=== PATIENT | female | born 1995 | race Two or more races ===

== ENCOUNTER 2017-09-01 08:14 | Emergency (ER) | payer OTHER ==
[~2017-09-01] VITALS: Ht 152.4 cm; Wt 61.2 kg
[2017-09-01 08:35] VITALS: BP 113/64
[2017-09-01 08:44] LABS: APPEARANCE,URINE CLEAR; BILIRUBIN, URINE NEGATIVE (NEGATIVE); COLOR,URINE PALE YELLOW; GLUCOSE, URINE (UA) NEGATIVE (NEGATIVE); KETONES,URINE NEGATIVE (NEGATIVE); LEUKOCYTE ESTERASE ,URINE 2+ (NEGATIVE); NITRITE,URINE NEGATIVE (NEGATIVE); PH,URINE 5 (4.5-8.0); PROTEIN,URINE NEGATIVE (NEGATIVE); UROBILINOGEN,URINE NORMAL MG/DL (0.0-1.0)
--- NOTE | 2017-09-01 08:56 | Emergency Room Report ---
History of Present Illness General Chief Complaint: Abdominal Pain Source: Patient Present Illness HPI Patient present with complaints of suprapubic abdominal pain and cramping Reports that she has had several frequent UTIs She states that she feels that she has a UTI almost every 3 months She was set up with a route agent however there was a change in insurance and she will be seeing specialist next week Given the cramping and discomfort patient presents to the ER She has some mild frequency Mild discomfort with urination denies any back or flank pain denies any vomiting or diarrhea Patient is sexually active reports that she has some very minimal vaginal discharge in the beginning however that has cleared and the cramping has continued Allergies: Coded Allergies: No Known Allergies (Unverified , 09/01/17) Patient History Past Medical History: see triage record Pertinent Family History: none Last Menstrual Period: 08/05/17 Now: No : 0 Para: 0 Reviewed Nursing Documentation: PMH: Agreed; PSxH: Agreed Nursing Documentation-PMH Past Medical History: No History, Except For Hx Cardiac Problems: No - frequent uti's Review of Systems All Other Systems: negative except mentioned in HPI Physical Exam Vital Signs Date Time Temp Pulse Resp B/P (MAP) Pulse Ox O2 Delivery O2 Flow Rate FiO2 09/01/17 08:19 97.8 63 16 113/64 99 Room Air 97.9 Sp02 EP Interpretation: reviewed, normal General Appearance: well appearing, no apparent distress Head: normocephalic, atraumatic Eyes: bilateral eye PERRL, bilateral eye EOMI ENT: hearing grossly normal, normal pharynx, TMs + canals normal, uvula midline Neck: full range of motion, supple, no meningismus, no bony tend Respiratory: lungs clear, normal breath sounds, no rhonchi, no respiratory distress, no retraction, no accessory muscle use Cardiovascular #1: normal peripheral pulses, regular rate, rhythm, no edema, no gallop, no JVD, no murmur Gastrointestinal: normal bowel sounds, non tender, soft, no mass, no organomegaly, non-distended, no guarding, no hernia, no pulsatile mass, no rebound Genitourinary: no CVA tenderness Musculoskeletal: normal inspection Neurologic: oriented x3, responsive, senior partner III-XII nml as tested, motor strength/ tone normal, sensory intact Psychiatric: mood/affect normal Skin: normal color, no rash, warm/dry, palpation normal Lymphatic: normal inspection, no adenopathy Medical Decision Making Diagnostic Impression: Primary Impression: UTI (urinary tract infection) ER Course With the patient's history and examination, multiple differentials considered, including but not limited to , ectopic , ovarian torsion, gastritis, cholecystitis, pancreatitis, appendicitis Patient's clinical findings and the history appear to be in line with what sounds to be likely UTI Other differentials such as PID, ectopic considered Patient's urine does show bacteria and given her symptoms she is treated accordingly and will have close outpatient follow-up UA: 2+ leukocytes, positive bacteria Last Vital Signs Date Time Temp Pulse Resp B/P (MAP) Pulse Ox O2 Delivery O2 Flow Rate FiO2 09/01/17 08:35 97.9 63 16 113/64 99 Room Air 97.9 Status: unchanged Disposition: HOME, SELF-CARE Condition: Stable Scripts Ibuprofen* (MOTRIN*) 600 Mg Tablet 600 MG ORAL Q8H PRN for For Pain, #20 TAB 0 Refills Prov: Eli Esparza DO 09/01/17 Trimethoprim/Sulfamethoxazole 160/800* (BACTRIM DS TABLET*) 1 Each Tablet 1 TAB ORAL Q12H, #14 TAB 0 Refills Prov: Eli Esparza DO 09/01/17 Referrals: NON PHYSICIAN (PCP) Additional Instructions: Patient is provided with the discharge instructions notified to follow up with primary doctor in the next 2-3 days otherwise return to the er with any worsening symptoms. Please note that this report is being documented using [employer] technology. This can lead to erroneous entry secondary to incorrect interpretation by the dictating instrument. Eli Esparza DO Sep 01, 2017 08:56
[2017-09-01] MEDS ORDERED: BACTRIM DS TAB1 EAC1 ORAL (09:31)
[2017-09-01] MEDS ORDERED: IBUPROFEN600 MG ORAL (09:31)
[2017-09-01 09:35] VITALS: BP 110/60
== END 2017-09-01 09:38 | disposition home or self-care (01) ==
LOC: EMR 08:47
DX: N39.0 Urinary tract infection, site not specified (principal)
CPT/HCPCS: 81003; 81025; 99282

== ENCOUNTER 2017-12-21 00:55 | Emergency (ER) | payer OTHER ==
[~2017-12-21] VITALS: Ht 152.4 cm; Wt 63.5 kg
[~2017-12-21 00:55] MED LIST: BACTRIM DS TAB1 EAC1 ORAL; IBUPROFEN600 MG ORAL
[2017-12-21] MEDS ORDERED: NITROFURANTOIN100 M2 ORAL (01:05)
[2017-12-21 01:20] VITALS: BP 116/75
[2017-12-21] MEDS ORDERED: BACTRIM DS TAB1 EAC1 ORAL ×2 (01:23→01:26)
[2017-12-21 01:30] VITALS: BP 107/65
[2017-12-21] MEDS ORDERED: Bactrim-DS 1 tab ORAL ONE (01:30)
[2017-12-21 01:31] LABS: APPEARANCE,URINE CLEAR; BILIRUBIN, URINE NEGATIVE (NEGATIVE); COLOR,URINE PALE YELLOW; GLUCOSE, URINE (UA) NEGATIVE (NEGATIVE); KETONES,URINE NEGATIVE (NEGATIVE); LEUKOCYTE ESTERASE ,URINE 3+ (NEGATIVE); NITRITE,URINE NEGATIVE (NEGATIVE); PH,URINE 6 (4.5-8.0); PROTEIN,URINE NEGATIVE (NEGATIVE); UROBILINOGEN,URINE NORMAL MG/DL (0.0-1.0)
--- NOTE | 2017-12-21 02:11 | Emergency Room Report ---
History of Present Illness General Chief Complaint: Abdominal Pain Source: Medical Record Present Illness HPI 22-year-old female presents ED for evaluation. States that she's been experiencing dysuria and cramping pain times one week. History of frequent UTI. States she was seen by her PMD and was prescribed Macrobid. States she completed the prescription and states there is no improvement in pain. Patient states that she typically gets Bactrim which works well for her. Denies flank pain. Denies fevers or chills. Denies nausea or vomiting. Pain is cramping, 5 out of 10, nonradiating. No other aggravating relieving factors. Denies any other associated symptoms Allergies: Coded Allergies: No Known Allergies (Unverified , 09/01/17) Patient History Past Medical History: none Past Surgical History: none Pertinent Family History: none Social History: Denies: smoking, alcohol use, drug use Last Menstrual Period: 12/08/17 Now: No : 0 Para: 0 Immunizations: UTD Reviewed Nursing Documentation: PMH: Agreed; PSxH: Agreed Nursing Documentation-PMH Hx Cardiac Problems: No - frequent uti's Review of Systems All Other Systems: negative except mentioned in HPI Physical Exam Vital Signs Date Time Temp Pulse Resp B/P (MAP) Pulse Ox O2 Delivery O2 Flow Rate FiO2 12/21/17 00:59 97.5 67 14 111/69 99 Room Air 97.5 Sp02 EP Interpretation: reviewed, normal General Appearance: no apparent distress, alert, GCS 15, non-toxic Head: normocephalic, atraumatic Eyes: bilateral eye normal inspection, bilateral eye PERRL ENT: hearing grossly normal, normal pharynx, no angioedema, normal voice Neck: full range of motion, supple/symm/no masses Respiratory: chest non-tender, lungs clear, normal breath sounds, speaking full sentences Cardiovascular #1: regular rate, rhythm, no edema Cardiovascular #2: 2+ carotid (R), 2+ carotid (L), 2+ radial (R), 2+ radial (L) , 2+ dorsalis pedis (R), 2+ dorsalis pedis (L) Gastrointestinal: normal bowel sounds, non tender, soft, non-distended, no guarding, no rebound Rectal: deferred Genitourinary: normal inspection, no CVA tenderness Musculoskeletal: back normal, gait/station normal, normal range of motion, non- tender Neurologic: alert, oriented x3, responsive, motor strength/tone normal, sensory intact, speech normal Psychiatric: judgement/insight normal, memory normal, mood/affect normal, no suicidal/homicidal ideation Reflexes: 3+ bicep (R), 3+ bicep (L), 3+ tricep (R), 3+ tricep (L), 3+ knee (R) , 3+ knee (L) Skin: normal color, no rash, warm/dry, well hydrated Lymphatic: no adenopathy Medical Decision Making Diagnostic Impression: Primary Impression: UTI (urinary tract infection) Qualified Codes: N39.0 - Urinary tract infection, site not specified ER Course Hospital Course 22-year-old female presents to ED complaining of dysuria with suprapubic pain. Differential diagnoses include: UTI, cystitis, pyelonephritis Clinical course Patient placed on stretcher. After initial history and physical I ordered UA, urine . UA + bacteria. Patient states she has responded well to Bactrim in the past. We will prescribe Bactrim. Recommend close follow-up with PMD Diagnosis - UTI Stable and discharged home with prescriptions for Rx bactrim DS. Instructed to followup with PMD. Return to ED if symptoms recur or worsen Labs Test 12/21/17 01:10 Urine Color Pale yellow Urine Appearance Clear Urine pH 6 (4.5-8.0) Urine Specific [place] 1.020 (1.005-1.035) Urine Protein Negative (NEGATIVE) Urine Glucose (UA) Negative (NEGATIVE) Urine Ketones Negative (NEGATIVE) Urine Occult Blood Negative (NEGATIVE) Urine Nitrite Negative (NEGATIVE) Urine Bilirubin Negative (NEGATIVE) Urine Urobilinogen Normal MG/DL (0.0-1.0) Urine Leukocyte Esterase 3+ (NEGATIVE) Urine RBC 0-2 /HPF (0 - 2) Urine WBC 30-40 /HPF (0 - 2) Urine Squamous Epithelial Cells Many /LPF (NONE/OCC) Urine Bacteria Few /HPF (NONE) Urine Yeast Few /HPF (NONE) Urine HCG, Qualitative Negative (NEGATIVE) Last Vital Signs Date Time Temp Pulse Resp B/P (MAP) Pulse Ox O2 Delivery O2 Flow Rate FiO2 12/21/17 01:30 97.6 16 107/65 100 Room Air 12/21/17 01:20 70 Status: improved Disposition: HOME, SELF-CARE Condition: Stable Scripts Trimethoprim/Sulfamethoxazole 160/800* (BACTRIM DS TABLET*) 1 Each Tablet 1 TAB ORAL Q12H, #14 TAB 0 Refills Prov: Satinder Saldivar MD 12/21/17 Patient Instructions: Dysuria Satinder Saldivar MD Dec 21, 2017 02:11
== END 2017-12-21 01:30 | disposition home or self-care (01) ==
LOC: EMR 01:15
DX: N39.0 Urinary tract infection, site not specified (principal)
CPT/HCPCS: 81003; 81025; 87086; 99283

== ENCOUNTER 2018-02-09 17:34 | Emergency (ER) | payer OTHER ==
[~2018-02-09] VITALS: Ht 152.4 cm; Wt 61.2 kg
[~2018-02-09 17:34] MED LIST changes: +NITROFURANTOIN100 M2 ORAL
[2018-02-09 18:19] LABS: APPEARANCE,URINE CLEAR; BILIRUBIN, URINE NEGATIVE (NEGATIVE); COLOR,URINE PALE YELLOW; GLUCOSE, URINE (UA) NEGATIVE (NEGATIVE); KETONES,URINE NEGATIVE (NEGATIVE); LEUKOCYTE ESTERASE ,URINE 1+ (NEGATIVE); NITRITE,URINE NEGATIVE (NEGATIVE); UROBILINOGEN,URINE NORMAL MG/DL (0.0-1.0)
--- NOTE | 2018-02-09 18:20 | Emergency Room Report ---
History of Present Illness General Chief Complaint: Female Urogenital Problems Source: Patient Present Illness HPI 22-year-old female presents to the emergency department complaining of urinary frequency 1 week. Patient reports initial symptom of dysuria which have resolved. Patient reports frequent UTIs. Patient denies fevers, chills, nausea , vomiting, abdominal tenderness, low back pain, hx of std, vaginal d/c, or . Allergies: Coded Allergies: No Known Allergies (Unverified , 09/01/17) Patient History Last Menstrual Period: 2 weeks Now: No Nursing Documentation-[facility] Past Medical History: No History, Except For Hx Cardiac Problems: No - frequent uti's Review of Systems All Other Systems: negative except mentioned in HPI Physical Exam Vital Signs Date Time Temp Pulse Resp B/P (MAP) Pulse Ox O2 Delivery O2 Flow Rate FiO2 02/09/18 17:42 98.6 76 18 113/76 98 Room Air 98.6 Sp02 EP Interpretation: reviewed, normal General Appearance: no apparent distress, alert, GCS 15, non-toxic Head: normocephalic, atraumatic Eyes: bilateral eye normal inspection, bilateral eye PERRL ENT: hearing grossly normal, normal voice Neck: full range of motion Respiratory: lungs clear, normal breath sounds, speaking full sentences Cardiovascular #1: regular rate, rhythm Gastrointestinal: normal bowel sounds, non tender, soft Rectal: deferred Genitourinary: normal inspection Musculoskeletal: back normal, gait/station normal, normal range of motion, non- tender Neurologic: alert, oriented x3, responsive, motor strength/tone normal, sensory intact, speech normal, grossly normal Psychiatric: judgement/insight normal Skin: normal color, no rash, warm/dry, well hydrated Medical Decision Making PA Attestation Dr. wells is my supervising Physician whom patient management has been discussed with. Diagnostic Impression: Primary Impression: Yeast UTI ER Course 22-year-old female presents to the emergency department complaining of urinary frequency 1 week. Patient reports initial symptom of dysuria which have resolved. Patient reports frequent UTIs. Patient denies fevers, chills, nausea , vomiting, abdominal tenderness, low back pain, hx of std, vaginal d/c, or . Ddx considered but are not limited to UTi , Pyelo, STI, Stone, Cystitis Vital signs: are WNL, pt. is afebrile H&PE are most consistent with possible UTI ORDERS: - UA labs:Most indicative of contamination: presence of equal amounts of bacteria and squamous cells, no elevation in inflammatory markers, nitrite negative. -- Review of previous micro results shows yeast. pt. was not treated for yeast at previous visit, will treat as this could be causing her symptoms. ED INTERVENTIONS: None required at this time. d/w pt. highly encouraged to follow up with a urologist for frequent UTI's. DISCHARGE: At this time pt. is stable for d/c to home. Will provide printed patient care instructions, and any necessary prescriptions. Care plan and follow up instructions have been discussed with the patient prior to discharge. Labs Test 02/09/18 17:44 Urine Color Pale yellow Urine Appearance Clear Urine pH 8 (4.5-8.0) Urine Specific [place] 1.010 (1.005-1.035) Urine Protein Negative (NEGATIVE) Urine Glucose (UA) Negative (NEGATIVE) Urine Ketones Negative (NEGATIVE) Urine Blood Negative (NEGATIVE) Urine Nitrite Negative (NEGATIVE) Urine Bilirubin Negative (NEGATIVE) Urine Urobilinogen Normal MG/DL (0.0-1.0) Urine Leukocyte Esterase 1+ (NEGATIVE) Urine RBC 0-2 /HPF (0 - 2) Urine WBC 0-2 /HPF (0 - 2) Urine Squamous Epithelial Cells Few /LPF (NONE/OCC) Urine Bacteria Few /HPF (NONE) Urine HCG, Qualitative Negative (NEGATIVE) Last Vital Signs Date Time Temp Pulse Resp B/P (MAP) Pulse Ox O2 Delivery O2 Flow Rate FiO2 02/09/18 17:42 98.6 76 18 113/76 98 Room Air 98.6 Disposition: HOME, SELF-CARE Condition: Stable Scripts Fluconazole (FLUCONAZOLE) 100 Mg Tablet 100 MG ORAL DAILY, #4 TAB 0 Refills Prov: Sarah Barfield 02/09/18 Referrals: [facility],REFERRING (PCP) Patient Instructions: Urinary Frequency Additional Instructions: Take medications as directed. Follow up with a Primary Care Provider in 3-5 days Recommend Urology follow up for frequent cystitis and urinary symptoms , even if your symptoms have resolved. --Please review list of primary care clinics, if you do not already have a primary care provider Return sooner to ED if new symptoms occur, or current symptoms become worse. - Please note that this Emergency Department Report was dictated using [employer] service supervisor technology software, occasionally this can lead to erroneous entry secondary to interpretation by the dictation equipment. Sarah Barfield Feb 09, 2018 18:20
[2018-02-09 18:22] LABS: PH,URINE 8 (4.5-8.0); PROTEIN,URINE NEGATIVE (NEGATIVE)
[2018-02-09 18:26] VITALS: BP 113/76
[2018-02-09] MEDS ORDERED: Fluconazole 100mg tab ORAL ONE (18:45)
[2018-02-09] MEDS ORDERED: FLUCONAZOLE100 MG ORAL (18:49)
[2018-02-09 18:56] VITALS: BP 113/76
== END 2018-02-09 18:59 | disposition home or self-care (01) ==
LOC: EMR 17:45
DX: N39.0 Urinary tract infection, site not specified (principal); B37.49 Other urogenital candidiasis
CPT/HCPCS: 81003; 81025; 99283

== ENCOUNTER 2018-03-28 19:35 | Emergency (ER) | payer OTHER ==
[~2018-03-28] VITALS: Ht 152.4 cm; Wt 61.2 kg
[~2018-03-28 19:35] MED LIST changes: +FLUCONAZOLE100 MG ORAL
[2018-03-28 19:48] VITALS: BP 112/76
[2018-03-28 19:59] LABS: APPEARANCE,URINE CLEAR; BILIRUBIN, URINE NEGATIVE (NEGATIVE); COLOR,URINE PALE YELLOW; GLUCOSE, URINE (UA) NEGATIVE (NEGATIVE); KETONES,URINE NEGATIVE (NEGATIVE); LEUKOCYTE ESTERASE ,URINE 2+ (NEGATIVE); NITRITE,URINE NEGATIVE (NEGATIVE); PH,URINE 7 (4.5-8.0); PROTEIN,URINE NEGATIVE (NEGATIVE); UROBILINOGEN,URINE NORMAL MG/DL (0.0-1.0)
--- NOTE | 2018-03-28 20:12 | Emergency Room Report ---
History of Present Illness General Chief Complaint: Female Urogenital Problems Source: Patient Present Illness HPI 22-year-old female patient presents ER complaining of frequency and urgency the past few days. Patient reports history of UTIs, states that she came" early this time be treated". Denies hematuria or dysuria. reports pruritic white vaginal discharge during this time. Denies abdominal pain. Denies fever, chest pain, shortness of breath, vomiting, chills. Reports has follow-up appointment with urology. states incomplete medication before being seen. Denies hx of diabetes. Allergies: Coded Allergies: No Known Allergies (Unverified , 09/01/17) Patient History Past Medical History: see triage record Last Menstrual Period: 02/2018 Reviewed Nursing Documentation: PMH: Agreed; PSxH: Agreed Nursing Documentation-PMH Past Medical History: No History, Except For Hx Cardiac Problems: No - frequent uti's Review of Systems All Other Systems: negative except mentioned in HPI Physical Exam Vital Signs Date Time Temp Pulse Resp B/P (MAP) Pulse Ox O2 Delivery O2 Flow Rate FiO2 03/28/18 19:44 97.9 74 16 112/76 98 Room Air Sp02 EP Interpretation: reviewed, normal General Appearance: well appearing, no apparent distress, alert, GCS 15, non- toxic Head: normocephalic, atraumatic Eyes: bilateral eye normal inspection, bilateral eye PERRL ENT: hearing grossly normal, normal pharynx, no angioedema, normal voice, uvula midline, moist mucus membranes Neck: full range of motion Respiratory: lungs clear, normal breath sounds, no rhonchi, no respiratory distress, no accessory muscle use, no wheezing, speaking full sentences Cardiovascular #1: regular rate, rhythm, no edema Gastrointestinal: non tender, soft, no mass, non-distended, no guarding, no rebound Genitourinary: no CVA tenderness Musculoskeletal: back normal, digits/nails normal, gait/station normal, normal range of motion, non-tender Neurologic: alert, oriented x3, responsive, motor strength/tone normal, sensory intact Psychiatric: mood/affect normal Skin: no rash Lymphatic: no adenopathy Medical Decision Making PA Attestation Dr. Rios is my supervising Physician whom patient management has been discussed with. Diagnostic Impression: Primary Impression: Yeast UTI ER Course Pt presents to ED c/o frequency and urgency and white pruritic vaginal discharge. DDX considered but are not limited to cystitis, pyelonephritis, STI, vaginitis, . No abdominal tenderness to palpation, negative furnace operator oil or gas, negative Brito, negative Rovsing, low suspicion for cholecystitis or appendicitis, does not require imaging or labs at this time. VITAL SIGNS are WNL, patient is afebrile. Ordered UA and urine . ER COURSE history consistent with yeast infection, will provide patient with fluconazole in the ER. UA results show multiple epithelial cells,No signs of infection, does not require antibiotics for UTI. urine negative. If concern for STI, followup with STI clinic for testing and treatment. Denies STI concern. Patient is resting comfortably in chair, nontoxic appearing, in no acute distress. Patient states they feel better and is ready to go home. ER precautions given. Provided with Ibuprofen for pain per patient request. Followup with urology at scheduled appointment. DISCHARGE -Rx provided for ibuprofen Patient is stable for discharge. Patient resting comfortably, in no acute distress, nontoxic appearing, talking without difficulty. Will provide with patient care instructions and any necessary prescriptions. Patient understands and agrees to treatment plan. Patient encouraged to drink plenty of fluids. Patient to take medication as instructed. Care plan and follow-up instructions provided. Patient questions asked and answered. Reports understanding and agreement to treatment plan. Patient instructed to follow-up with primary care provider in 3 - 5 days. ER precautions given. Patient instructed to return to ER immediately for any new or worsening of symptoms. Including but not limited to fever, abdominal pain , intractable vomiting. - Please note that this Emergency Department Report was dictated using [employer] touch up painter technology software, occasionally this can lead to erroneous entry secondary to interpretation by the dictation equipment. Labs Test 03/28/18 19:47 Urine Color Pale yellow Urine Appearance Clear Urine pH 7 (4.5-8.0) Urine Specific [place] 1.010 (1.005-1.035) Urine Protein Negative (NEGATIVE) Urine Glucose (UA) Negative (NEGATIVE) Urine Ketones Negative (NEGATIVE) Urine Blood Negative (NEGATIVE) Urine Nitrite Negative (NEGATIVE) Urine Bilirubin Negative (NEGATIVE) Urine Urobilinogen Normal MG/DL (0.0-1.0) Urine Leukocyte Esterase 2+ (NEGATIVE) Urine RBC 0-2 /HPF (0 - 2) Urine WBC 2-4 /HPF (0 - 2) Urine Squamous Epithelial Cells Moderate /LPF (NONE/OCC) Urine Bacteria Few /HPF (NONE) Urine HCG, Qualitative Negative (NEGATIVE) Last Vital Signs Date Time Temp Pulse Resp B/P (MAP) Pulse Ox O2 Delivery O2 Flow Rate FiO2 03/28/18 19:48 97.9 78 16 112/76 98 Room Air Disposition: HOME, SELF-CARE Condition: Stable Scripts Ibuprofen* (MOTRIN*) 600 Mg Tablet 600 MG ORAL Q8H PRN for For Pain, #30 TAB 0 Refills Prov: Hitesh Mendoza 03/28/18 Patient Instructions: Vaginal Yeast Infection, Adult Additional Instructions: Followup with primary care provider and followup with and./or OBGYN. Drink plenty of fluids. Take medications as directed. Patient questions asked and answered. ER precautions given, patient instructed to return to ER immediately for any new or worsening of symptoms. Hitesh Mendoza Mar 28, 2018 20:12
[2018-03-28] MEDS ORDERED: Fluconazole 100mg tab ORAL ONE (20:15)
[2018-03-28] MEDS ORDERED: IBUPROFEN600 MG ORAL (20:36)
[2018-03-29 00:26] VITALS: BP 112/76
== END 2018-03-29 00:28 | disposition home or self-care (01) ==
LOC: EMR 20:11
DX: B37.49 Other urogenital candidiasis (principal); N39.0 Urinary tract infection, site not specified
CPT/HCPCS: 81003; 81025; 99283

== ENCOUNTER 2018-05-25 15:31 | Emergency (ER) | payer OTHER ==
[~2018-05-25] VITALS: Ht 165.1 cm; Wt 61.2 kg
[2018-05-25 15:37] VITALS: BP 117/75
--- NOTE | 2018-05-25 15:40 | NUR ---
ED Nurse Note: A/Ox4. Ambulated in to ER due to increase in urinary frequency and itchiness in the vaginal area for a week. Denies swelling and burning urination.
--- NOTE | 2018-05-25 15:47 | NUR ---
ED Nurse Note: urine collected and sent down to the lab
--- NOTE | 2018-05-25 15:52 | Emergency Room Report ---
History of Present Illness General Chief Complaint: Female Urogenital Problems Source: Patient Present Illness HPI Pt. presents to the ED c/o vaginal irritation/ discomfort x 7 days. pt. also reports urinary frequency. She reports severe itching. She denies visible rash , d/c, dysuria, hematuria, low back pain, swollen tender lymph nodes, abdominal pain or tenderness, nausea, vomiting, fevers, chills, constipation or diarrhea. Denies suspicion of STI and denies recent unprotected intercourse. She states she is currently on the Nexplanon implant. Allergies: Coded Allergies: No Known Allergies (Unverified , 09/01/17) Patient History Past Medical History: see triage record Past Surgical History: none Pertinent Family History: none Now: No Reviewed Nursing Documentation: PMH: Agreed; PSxH: Agreed Nursing Documentation-PMH Past Medical History: No History, Except For Hx Cardiac Problems: No - frequent uti's Review of Systems All Other Systems: negative except mentioned in HPI Physical Exam Vital Signs Date Time Temp Pulse Resp B/P (MAP) Pulse Ox O2 Delivery O2 Flow Rate FiO2 05/25/18 15:37 98.6 67 18 117/75 99 Room Air Sp02 EP Interpretation: reviewed, normal General Appearance: no apparent distress, alert, GCS 15, non-toxic Head: normocephalic, atraumatic Eyes: bilateral eye normal inspection, bilateral eye PERRL ENT: hearing grossly normal, normal voice Neck: full range of motion Respiratory: lungs clear, normal breath sounds, speaking full sentences Cardiovascular #1: regular rate, rhythm Gastrointestinal: normal bowel sounds, non tender, soft, no guarding Rectal: deferred Genitourinary: normal inspection, no CVA tenderness Musculoskeletal: back normal, gait/station normal, normal range of motion, non- tender Neurologic: alert, oriented x3, responsive, motor strength/tone normal, sensory intact, speech normal, grossly normal Psychiatric: judgement/insight normal Skin: normal color, no rash, warm/dry, well hydrated Lymphatic: no adenopathy Medical Decision Making PA Attestation Dr. wells is my supervising Physician whom patient management has been discussed with. Diagnostic Impression: Primary Impression: Vaginitis Qualified Codes: N76.0 - Acute vaginitis ER Course Pt. presents to the ED c/o vaginal irritation/ discomfort x 7 days. pt. also reports urinary frequency. She reports severe itching. She denies visible rash , d/c, dysuria, hematuria, low back pain, swollen tender lymph nodes, abdominal pain or tenderness, nausea, vomiting, fevers, chills, constipation or diarrhea. Denies suspicion of STI and denies recent unprotected intercourse. She states she is currently on the Nexplanon implant. Ddx considered but are not limited to UTi , Pyelo, STI, Stone, Cystitis, vaginal laceration, vaginitis. Vital signs: are WNL, pt. is afebrile H& PE are most consistent with: Vaginitis ORDERS: - UA labs are attached - No evidence of UTI ED INTERVENTIONS: -Diflucan PO DISCHARGE: At this time pt. is stable for d/c to home. Will provide printed patient care instructions, and any necessary prescriptions. Care plan and follow up instructions have been discussed with the patient prior to discharge. discussed with the patient prior to discharge. Labs Test 05/25/18 15:48 Urine Color Yellow Urine Appearance Slightly cloudy Urine pH 5 (4.5-8.0) Urine Specific [place] 1.025 (1.005-1.035) Urine Protein 1+ (NEGATIVE) Urine Glucose (UA) Negative (NEGATIVE) Urine Ketones 1+ (NEGATIVE) Urine Blood Negative (NEGATIVE) Urine Nitrite Negative (NEGATIVE) Urine Bilirubin Negative (NEGATIVE) Urine Urobilinogen Normal MG/DL (0.0-1.0) Urine Leukocyte Esterase 1+ (NEGATIVE) Urine RBC 0-2 /HPF (0 - 2) Urine WBC 2-4 /HPF (0 - 2) Urine Squamous Epithelial Cells Moderate /LPF (NONE/OCC) Urine Bacteria Few /HPF (NONE) Urine HCG, Qualitative Negative (NEGATIVE) Last Vital Signs Date Time Temp Pulse Resp B/P (MAP) Pulse Ox O2 Delivery O2 Flow Rate FiO2 05/25/18 15:37 98.6 67 18 117/75 99 Room Air Disposition: HOME, SELF-CARE Condition: Stable Scripts Fluconazole (FLUCONAZOLE) 100 Mg Tablet 100 MG ORAL DAILY, #7 TAB 0 Refills Prov: Sarah Barfield 05/25/18 Patient Instructions: Vaginal Yeast Infection, Adult Additional Instructions: Take medications as directed. Follow up with a DIRECTOR REPORT within 3-5 days, even if your symptoms have resolved. Return sooner to ED if new symptoms occur, or current symptoms become worse. - Please note that this Emergency Department Report was dictated using [email or web address].compresident and chief operating officer technology software, occasionally this can lead to erroneous entry secondary to interpretation by the dictation equipment. Sarah Barfield May 25, 2018 15:52
[2018-05-25] MEDS ORDERED: Fluconazole 100mg tab ORAL ONE (16:00)
[2018-05-25 16:47] LABS: APPEARANCE,URINE SLIGHTLY CLOUDY; BILIRUBIN, URINE NEGATIVE (NEGATIVE); GLUCOSE, URINE (UA) NEGATIVE (NEGATIVE); KETONES,URINE 1+ (NEGATIVE); LEUKOCYTE ESTERASE ,URINE 1+ (NEGATIVE); NITRITE,URINE NEGATIVE (NEGATIVE); PH,URINE 5 (4.5-8.0); PROTEIN,URINE 1+ (NEGATIVE); UROBILINOGEN,URINE NORMAL MG/DL (0.0-1.0)
[2018-05-25 16:50] LABS: COLOR,URINE YELLOW
[2018-05-25] MEDS ORDERED: FLUCONAZOLE100 MG ORAL (17:03)
[2018-05-25 17:08] VITALS: BP 115/73
[2018-05-25 17:10] VITALS: BP 115/73
--- NOTE | 2018-05-25 17:11 | NUR ---
ED Nurse Note: A/Ox4. Pt is cleared by GERMAIN Smith. DC instruction and prescription given, pt verbalized understanding. ID wrist band removed. Denies any pain at this time. All belongings taken by pt. Pt ambulated out of ER with steady gait.
== END 2018-05-25 17:11 | disposition home or self-care (01) ==
LOC: EMR 16:13
DX: N76.0 Acute vaginitis (principal)
CPT/HCPCS: 81003; 81025; 99283